=== PATIENT | male | born 1945 | race Caucasian/White ===

== ENCOUNTER 2016-08-28 05:56 | Day surgery (SDC) | payer MEDICARE, OTHER ==
[2016-08-28] VITALS (11 sets, daily range): BP systolic 106–136; BP diastolic 58–78; PULSE 80–98; TEMP 97.7
[~2016-08-28] VITALS: Ht 170.3 cm; Wt 95.0 kg
[~2016-08-28 05:56] MED LIST: ALDACTONE 25MG25 M1; ASPIRIN 81M81 MG/TA2 PO; COREG 25MG25 MG/TAB PO; COUMADIN 22.5 MG/TAB; COUMADIN 5MG5 MG/TAB PO; COZAAR 50MG50 MG/TAB PO; FLOMAX 0.40.4 MG/CAP PO; GLUCOTROL10 MG PO; LASIX 40MG TABL40 MG PO; LEVEMIR100 U/ML; LIPITOR 40MG TA40 MG PO; LOFIBRA54 MG PO; LOMOTIL 0.025 M1 TAB PO; MULTIVITAMIN1 CTB PO; NEURONTIN400 MG/CAP; NIACOR500 MG PO; NOVOLOG 100U100 U/M1; SAXENDA6 MG/ML SQ; TOUJEO300 U/ML SQ; VITAMIN C500 MG PO; VITAMIN D 50,1.25 MG PO; [UNRECOGNIZED DRUG - OTHER] PO
[2016-08-28 06:53] LABS: HEMATOCRIT 39.6 % (42.0-52.0); HEMOGLOBIN 13.7 g/dl (13.5-18.0); MEAN CELL VOLUME 91 fl (80.0-100.0); MEAN CORPUSCULAR HEMOGLOBIN 32 pg (27.0-31.0); MEAN CORPUSCULAR HGB CONC 35 g/dl (33.0-37.0); PLATELET COUNT 179 K/mm3 (130-400); RED BLOOD COUNT 4.35 M/mm3 (4.20-5.60); REDCELL DISTRIBUTION WIDTH-CV 14.3 % (11.5-14.5); WHITE BLOOD COUNT 7.6 K/mm3 (4.8-10.8)
[2016-08-28 07:02] LABS: CALCIUM 9.3 mg/dL (8.4-10.2); CREATININE, serum 2.09 mg/dL (0.66-1.25); POTASSIUM 3.9 mmol/L (3.4-5.0)
[2016-08-28] MEDS ORDERED: GLUCOSAMINE & C1 CA1 PO (07:16)
[2016-08-28 07:26] LABS: INR 1.3 (0.8-3.0); PROTHROMBIN TIME 14.6 SECONDS (9.7-12.8)
[2016-08-28] MEDS ORDERED: IMDUR 30MG30 MG/TAB PO (12:58)
== END 2016-08-28 14:00 ==
LOC: COL.CAR 05:56
PROVIDERS: Internal Medicine Cardiovascular Disease
DX: I25.10 Atherosclerotic heart disease of native coronary artery without angina pectoris (principal); R94.39 Abnormal result of other cardiovascular function study; I48.91 Unspecified atrial fibrillation; I10 Essential (primary) hypertension; I42.9 Cardiomyopathy, unspecified; I73.9 Peripheral vascular disease, unspecified; E11.9 Type 2 diabetes mellitus without complications; E78.5 Hyperlipidemia, unspecified; Z79.01 Long term (current) use of anticoagulants; Z79.899 Other long term (current) drug therapy; Z79.82 Long term (current) use of aspirin; Z79.4 Long term (current) use of insulin; Z79.84 Long term (current) use of oral hypoglycemic drugs
CPT/HCPCS: A9270-GY; C1760; C1769; C1894; J2250; J3010; Q9967

== ENCOUNTER 2024-01-14 08:09 | Day surgery (SDC) | payer MEDICARE, OTHER ==
[~2024-01-14] VITALS: Ht 172.7 cm; Wt 101.3 kg
[2024-01-14] VITALS (13 sets, daily range): BP systolic 106–133; BP diastolic 65–77; PULSE 73–90; TEMP 98.2
[~2024-01-14 08:09] MED LIST changes: +DOXYCYCLINE 10100 MG PO; +GLUCOSAMINE & C1 CA1 PO; +IMDUR 30MG30 MG/TAB PO; +LR 1,000 ML IV SCH; -NEURONTIN400 MG/CAP; +NEURONTIN400 MG/CAP PO
[2024-01-14] MEDS ORDERED: 1/2 NS 1,000 ML IV SCH (08:45)
[2024-01-14 09:02] LABS: HEMATOCRIT 43.3 % (42.0-52.0); HEMOGLOBIN 14.9 g/dl (13.5-18.0); MEAN CELL VOLUME 92 fl (80.0-100.0); MEAN CORPUSCULAR HEMOGLOBIN 32 pg (27-31); MEAN CORPUSCULAR HGB CONC 34 g/dl (33.0-37.0); MEAN PLATELET VOLUME 9.9 fl (7.4-10.4); PLATELET COUNT 172 K/mm3 (130-400); RED BLOOD COUNT 4.72 M/mm3 (4.20-5.60); REDCELL DISTRIBUTION WIDTH-CV 14.6 % (11.5-14.5)
[2024-01-14 09:18] LABS: CALCIUM 9.7 mg/dL (8.4-10.2); CREATININE, serum 2.84 mg/dL (0.72-1.25); POTASSIUM 4.2 mEq/L (3.5-4.5)
[2024-01-14 09:22] LABS: INR 1.1 (0.8-3.0); PROTHROMBIN TIME 12.4 SECONDS (9.7-12.8)
[2024-01-14 09:25] LABS: PARTIAL THROMBOPLASTIN TIME 31.3 SECONDS (26.0-37.0)
[2024-01-14] MEDS ORDERED: JARDIANCE10 (09:56)
[2024-01-14] MEDS ORDERED: ALDACTONE 25MG25 M1 PO (09:57)
[2024-01-14] MEDS ORDERED: MULTIPLE VITAMI1 CAP PO (10:04)
[2024-01-14] MEDS ORDERED: ELIQUIS 5MG PO (10:05)
[2024-01-14] MEDS ORDERED: OMEGA-3 1000 MG1 CAP PO (10:07)
[2024-01-14] MEDS ORDERED: Lidocaine PF 2% (20 MG/ML) 5 ML VIAL ONE (10:07)
[2024-01-14] MEDS ORDERED: PROBIOTIC BLEN1 EACH PO (10:09)
[2024-01-14] MEDS ORDERED: METAMUCIL0.52 G1 (10:15)
--- NOTE | 2024-01-14 11:16 | NUR ---
See Merge report for procedural sedation/notes
[2024-01-14] MEDS ORDERED: Iohexol 350 - 100 ML VIAL INCOR ONE (11:33)
[2024-01-14] MEDS ORDERED: fentaNYL 50 MCG/ML 2 ML VIAL IV SCH (11:34)
--- NOTE | 2024-01-14 11:50 | NUR ---
Pt back to [facility] - bedside handoff performed with ROSE MARY Broussard: vitals initiated and stable, rt groin access site stable, dressing CDI, at bedside, call light in reach
[2024-01-14] MEDS ORDERED: Midazolam 2 MG/2 ML VIAL IV SCH (11:55)
--- NOTE | 2024-01-14 16:10 | NUR ---
Pt ambulated with an unsteady gait using a cane, accompanied by to [facility]. Pt was scheduled for a LHC/PRECIOUS. EKG done. IV started. Meds and HX reviewed with the pt. Consent for the procedure signed. Post procedure the pt came back to [facility]. The groin site was assessed, clean, dry, and intact. Offered the pt something to eat and drink, the pt declined the offer. The pt was bedrest for 4 hours post procedure. Once the bedrest was done the pt stood by the edge of the bed. The groin site remained clean, dry, and intact. Discharge education and information discussed with the pt. No questions at the time. IV dc'd and the site was wrapped with coban. The pt exited the unit by wheelchair accompanied by this nurse to their wifes car.
== END 2024-01-14 15:53 | disposition home or self-care (01) ==
LOC: COL.CAR 08:09
PROVIDERS: Internal Medicine Cardiovascular Disease
DX: I25.10 Atherosclerotic heart disease of native coronary artery without angina pectoris (principal); I70.8 Atherosclerosis of other arteries; I42.9 Cardiomyopathy, unspecified; Z86.718 Personal history of other venous thrombosis and embolism; Z95.5 Presence of coronary angioplasty implant and graft; Z85.46 Personal history of malignant neoplasm of prostate
CPT/HCPCS: C1760; C1769; C1894; J1644; J2250; J2704; J3010; Q9967